=== PATIENT | male | born 2000 | race Caucasian/White ===

== ENCOUNTER 2019-07-21 13:50 | Emergency (ER) | payer OTHER ==
[2019-07-21 14:09] VITALS: BP 144/72; PULSE 87; TEMP 98.2; BMI 27.5
--- NOTE | 2019-07-21 14:28 | PDOC ---
History of Present Illness - General Chief Complaint: Pain Stated Complaint: LEG PAIN Time Seen by Provider: 07/21/19 14:10 History Source: Patient - History of Present Illness Occurred: reports: yesterday Severity: Yes: mild Lower Extremity Pain Location: left: knee Past History - Past Medical History Allergies/Adverse Reactions: Allergies Allergy/AdvReac Type Severity Reaction Status Date / Time No Known Allergies Allergy Verified 07/21/19 14:05 - Psycho Social/Smoking Cessation Hx Smoking History: Never smoked Have you smoked in the past 12 months: No Hx Alcohol Use: No Drug/Substance Use Hx: No Review of Systems - Review of Systems Constitutional: No: Chills, Fever Musculoskeletal: Yes: Joint Pain. No: Joint Swelling *Physical Exam - Vital Signs Last Vital Signs Temp Pulse Resp BP Pulse Ox 98.2 F 87 18 144/72 97 07/21/19 14:06 07/21/19 14:06 07/21/19 14:06 07/21/19 14:06 07/21/19 14:06 - Physical Exam General Appearance: Yes: Appropriately Dressed. No: Apparent Distress HEENT: positive: Normal Voice Neck: positive: Supple Respiratory/Chest: negative: Respiratory Distress Extremity: positive: Normal Inspection, Normal Range of Motion. negative: Tender, Swelling Integumentary: positive: Dry, Warm Neurologic: positive: Fully Oriented, Alert, Normal Mood/Affect Medical Decision Making - Medical Decision Making 07/21/19 14:32 18-year-old male, no significant history, here with L knee pain after jumping on a trampoline yesterday. No specific injury. Pain located to popliteal area and worse with weight bearing. States pain has since improved. No swelling. Has not taken anything for pain see exam M/l MSK knee pain No e/o serious injury -Dc w/ rest, OTC meds prn pain and ortho f/u as needed Discharge - Discharge Information Problems reviewed: Yes Clinical Impression/Diagnosis: Knee pain, left Qualifiers: Chronicity: acute Qualified Code(s): M25.562 - Pain in left knee Condition: Good Disposition: HOME - Follow up/Referral Referrals: Cornelio Delcid [Primary Care Provider] - Fernie Ambrosio MD [Staff Physician] - - Patient Discharge Instructions Patient Printed Discharge Instructions: DI for Knee Pain Additional Instructions: Cause of your knee pain is unclear at this time but if persist, please follow- up with Dr. Ambrosio of Ortho in the meantime rest and take Motrin or Tylenol as needed for the pain - Post Discharge Activity Work/Back to School Note: Back to School
== END 2019-07-21 14:30 | disposition home or self-care (01) ==
LOC: JERFT 13:50
DX: M25.562 Pain in left knee (principal); Y93.44 Activity, trampolining; Y92.89 Other specified places as the place of occurrence of the external cause; Y99.8 Other external cause status
CPT/HCPCS: 99281-25